=== PATIENT | female | born 1975 | race Caucasian/White ===

== ENCOUNTER → 2017-06-15 12:53 | Outpatient (CLI) | payer MEDICAID ==
[2016-01-23 06:46] VITALS: BMI 51.0
[~2017-06-15 12:53] MED LIST: ADDERALL 30 MG30 MG PO; DILAUDID4 MG PO; DULERA 200 MCG8.8 GM INH; LISINOPRIL-HCTZ1 T11 PO; MECLIZINE HCL25 MG PO; NEXIUM20 MG PO; TOPROL XL100 MG PO; XOPENEX HFA15 GM INH; ZOFRAN ODT4 MG/UDTAB PO
[2017-06-16 09:13] LABS: IMMUNOGLOBULIN E 60 IU/mL (0-100)
[2017-06-16 11:14] LABS: IMMUNOGLOBULIN A 126 mg/dL (87-352); IMMUNOGLOBULIN G 726 mg/dL (700-1600)
== END | disposition home or self-care (01) ==
LOC: D.LAB 12:53 → D.RT 13:00
PROVIDERS: Internal Medicine Pulmonary Disease
DX: J45.909 Unspecified asthma, uncomplicated (principal)

== ENCOUNTER 2018-02-20 13:09 | Emergency (ER) | payer MEDICAID ==
[2016-01-23 06:46] VITALS: BMI 51.0
[2018-02-20 13:43] LABS: BASOPHILS 0.4 % (0-2); EOSINOPHILS 1.8 % (0-7); HEMATOCRIT 39.4 % (36.0-48.0); HEMOGLOBIN 13.4 g/dL (12-16); IMMATURE GRANULOCYTES 0.3 % (0-5); LYMPHOCYTES 28.4 % (15-50); MCH 29.4 pg (26.0-34.0); MCV 86.4 fL (80.0-100.0); MEAN PLATELET VOLUME 9.6 fL (7.4-10.4); MONOCYTES 5.7 % (2-11); NEUTROPHILS 63.4 % (40-80); PLATELET COUNT 282 10x3/uL (130-400); RBC 4.56 10x6/uL (4.00-5.40); RDW 13.2 % (11.5-14.5); WBC 9.9 10x3/uL (4.8-10.8)
[2018-02-20 14:01] LABS: ALBUMIN 3.3 g/dL (3.4-5.0); BILIRUBIN - TOTAL 0.46 mg/dL (0.2-1.3); CALCIUM 8.4 mg/dL (8.5-10.1); CARBON DIOXIDE 28.3 mmol/L (21.0-32.0); CREATININE - SERUM 1.1 mg/dL (0.6-1.3); POTASSIUM - SERUM 3.3 mmol/L (3.5-5.1); PROTEIN - SERUM 6.6 g/dL (6.4-8.2)
== END 2018-02-20 15:47 | disposition home or self-care (01) ==
LOC: D.ER 13:09
PROVIDERS: Emergency Medicine
DX: J45.901 Unspecified asthma with (acute) exacerbation (principal); F90.9 Attention-deficit hyperactivity disorder, unspecified type; Z86.73 Personal history of transient ischemic attack (TIA), and cerebral infarction without residual deficits; I10 Essential (primary) hypertension